=== PATIENT | male | born 1940 | race Caucasian/White ===

== ENCOUNTER 2021-07-01 23:18 | Emergency (ER) | payer OTHER ==
[2021-07-01 23:28] VITALS: TEMP 98.1; BMI 19.3
[2021-07-02 01:09] VITALS: BP 145/113; PULSE 75
== END 2021-07-02 01:18 | disposition home or self-care (01) ==
LOC: JER 23:18
PROC: 0HQ1XZZ Repair Face Skin, External Approach (ICD-10-PCS; principal; 2021-07-01)
DX: S01.81XA Laceration without foreign body of other part of head, initial encounter (principal); S09.90XA Unspecified injury of head, initial encounter; W05.0XXA Fall from non-moving wheelchair, initial encounter
CPT/HCPCS: 70450-TC; 72125-TC; 99282-25